=== PATIENT | female | born 1930 | race Caucasian/White ===

== ENCOUNTER 2016-04-16 08:40 | Emergency (ER) | payer OTHER, MEDICAID ==
[~2016-04-16] VITALS: Ht 154.9 cm; Wt 52.2 kg
[~2016-04-16 08:40] MED LIST: AZOPT10 ML OP; DIOVAN; DIOVAN HCT 3201 EAC1 PO; DOXAZOSIN MESYLA4 MG PO; IBUPROFEN600 MG ORAL; KEFLEX500 MG ORAL; LUMIGAN1 DROP OP; NS 55 ML IV ONE; SILVADENE CREAM50 GM TOP; Tubing IV Cassette IV ONE
[2016-04-16] MEDS ORDERED: Dexamethasone 4mg/ml vial IVP ONE (09:30)
[2016-04-16] MEDS ORDERED: cefTRIAXone 1 GM in NS 55 ML IVPB ONE (09:30)
--- NOTE | 2016-04-16 09:54 | Emergency Room Report ---
History of Present Illness General Chief Complaint: Sore Throat Source: Patient Present Illness HPI Patient presents with sore throat for 2 days. The pain radiates to her left ear. She was a slight change in her voice. She's been able to tolerate oral fluids. She's also constipated. She denies any fevers or chills chest pain. She has not trouble opening her mouth. There is no neck pain. She rates pain 10/10, constant slightly worse with swallowing - sharp, stabbing She states medicine used in hospital helped with her constipation. She denies taking opiates. Last admitted for syncope. Allergies: Coded Allergies: No Known Allergies (Verified , 09/16/08) Patient History Past Medical History: see triage record Social History: Reports: smoking - prior Social History Narrative at home Last Menstrual Period: na Reviewed Nursing Documentation: PMH: Agreed, PSxH: Agreed Nursing Documentation-PMH Past Medical History: No History, Except For Hx Cardiac Problems: No Hx Hypertension: Yes Hx Diabetes: No Hx Cancer: No Hx Gastrointestinal Problems: Yes Hx Cerebrovascular Accident: No Hx Vertigo: Yes Hx Dizziness: Yes Hx Syncope: Yes Hx Headaches: Yes Hx Numbness: Yes Review of Systems All Other Systems: negative except mentioned in HPI Physical Exam Vital Signs Date Time Temp Pulse Resp B/P Pulse Ox O2 Delivery O2 Flow Rate FiO2 04/16/16 09:02 98.4 102 18 171/83 95 Room Air Sp02 EP Interpretation: reviewed, abnormal - slightly low as interpreted by me General Appearance: well appearing, no apparent distress, alert, GCS 15, non- toxic, thin Head: normocephalic, atraumatic Eyes: bilateral eye PERRL, bilateral eye normal inspection ENT: TMs + canals normal, moist mucus membranes, tonsillar swelling - L, pharyngeal erythema, other - no exudates, TMs with cerumen Neck: full range of motion, supple, no meningismus Respiratory: lungs clear, normal breath sounds, no respiratory distress, speaking full sentences Cardiovascular #1: regular rate, rhythm Gastrointestinal: normal bowel sounds, soft, scaphoid Musculoskeletal: digits/nails normal, gait/station normal, normal range of motion Neurologic: alert, oriented x3, normal gait, grossly normal Psychiatric: mood/affect normal Skin: no rash Medical Decision Making Diagnostic Impression: Primary Impression: Peritonsillar abscess Additional Impression: Constipation Qualified Codes: K59.00 - Constipation, unspecified ER Course Patient with sore throat. DDx: viral, strep, [employer]. Exam c/w early [employer]. Needs antibiotics and also decadron. Peritonsillar abscess is small and not affecting ability to open mouth or swallow. Will treat aggressively and follow patient closely. Patient told this might need to be drained. She understands. Tolerating PO well. (She also requests medication to help with constipation.) Patient stable for outpatient observation and treatment. Last Vital Signs Date Time Temp Pulse Resp B/P Pulse Ox O2 Delivery O2 Flow Rate FiO2 04/16/16 10:58 98.4 97 18 165/81 96 Room Air Status: improved Disposition: HOME, SELF-CARE Condition: Improved Scripts Sennosides (Senokot) 8.6 Mg Tablet 8.6 MG PO DAILY Y for Constipation, #4 TAB Prov: Aric Hunter M.D. 04/16/16 Acetaminophen (Tylenol) 325 Mg Tablet 650 MG ORAL Q6H Y for Prn Pain/Headache/Temp > 101, #30 TAB 0 Refills Prov: Aric Hunter M.D. 04/16/16 Amoxicillin/Potassium Clav 500-125 Tablet* (AUGMENTIN 500-125 TABLET*) 1 Each Tablet 1 TAB ORAL THREE TIMES A DAY, #21 TAB Prov: Aric Hunter M.D. 04/16/16 Referrals: [facility],REFERRING (PCP) Aric Hunter M.D. Apr 16, 2016 09:54
[2016-04-16 10:30] VITALS: BP 165/81
[2016-04-16] MEDS ORDERED: SENOKOT8.6 MG PO (10:45)
[2016-04-16] MEDS ORDERED: AUGMENTIN 500-1 EACH ORAL (10:45)
[2016-04-16] MEDS ORDERED: TYLENOL325 MG ORAL (10:45)
[2016-04-16 10:58] VITALS: BP 165/81
== END 2016-04-16 10:58 | disposition home or self-care (01) ==
LOC: EMR 09:21
DX: J36 Peritonsillar abscess (principal); H61.23 Impacted cerumen, bilateral; I10 Essential (primary) hypertension
CPT/HCPCS: 96360; 96374; 99284; J0696; J1100

== ENCOUNTER 2016-08-23 10:25 | Emergency (ER) | payer OTHER, MEDICAID ==
[~2016-08-23] VITALS: Ht 157.5 cm; Wt 52.6 kg
[~2016-08-23 10:25] MED LIST changes: +AUGMENTIN 500-1 EACH ORAL; -NS 55 ML IV ONE; +SENOKOT8.6 MG PO; +TYLENOL325 MG ORAL; -Tubing IV Cassette IV ONE
[2016-08-23] MEDS ORDERED: LATANOPROST2.5 ML BOTH EYES (10:33)
[2016-08-23 11:08] VITALS: BP 157/82
[2016-08-23 11:31] LABS: BASOPHILS % (AUTO) 1.6 % (0.0-2.0); EOSINOPHILS % (AUTO) 3.3 % (0.0-3.0); LYMPHOCYTES % (AUTO) 22.4 % (20.0-45.0); MEAN CORPUSCULAR HEMOGLOBIN 30.8 PG (27.0-31.0); MEAN CORPUSCULAR HGB CONC 32.7 G/DL (32.0-36.0); MEAN CORPUSCULAR VOLUME 94 FL (80-99); MEAN PLATELET VOLUME 7.2 FL (6.5-10.1); NEUTROPHILS % (AUTO) 64.6 % (45.0-75.0); PLATELET COUNT 204 K/UL (150-450); RED BLOOD COUNT 4.18 M/UL (4.20-5.40); WHITE BLOOD COUNT 4.9 K/UL (4.8-10.8)
[2016-08-23 11:44] LABS: ALANINE AMINOTRANSFERASE 21 U/L (3-33); ALBUMIN/GLOBULIN RATIO 1.7 (1.0-2.7); ANION GAP 10 (5-15); ASPARTATE AMINO TRANSFERASE 25 U/L (5-40); CALCIUM 9.4 mg/dL (8.6-10.2); CARBON DIOXIDE 28 mEQ/L (20-30); CHLORIDE 101 mEQ/L (98-107); HEMOLYSIS 5; POTASSIUM 3.8 mEQ/L (3.4-4.9); SODIUM 139 mEQ/L (135-145); TOTAL PROTEIN 6.4 g/dL (6.6-8.7); TROPONIN I < 0.30 ng/mL (<=0.30)
[2016-08-23 11:54] LABS: CKMB 2.2 ng/mL (< 3.8)
--- NOTE | 2016-08-23 13:25 | Emergency Room Report ---
History of Present Illness General Chief Complaint: Upper Respiratory Illness Source: Patient Present Illness HPI [id number] BIBEMS from SNF with SOB since last night. Worse with lying flat. Has been occurring over last month. Doesnt know her medical history, not sure if she has CHF Previous heavy smoking 40 years ago Denies cough, fever/chills, chest pain, abd pain, urinary complaints Allergies: Coded Allergies: No Known Allergies (Verified , 09/16/08) Patient History Past Medical History: none, old chart reviewed Past Surgical History: none Pertinent Family History: none Social History: Denies: alcohol use, drug use, smoking Now: No Immunizations: UTD Reviewed Nursing Documentation: PMH: Agreed, PSxH: Agreed Nursing Documentation-PMH Hx Cardiac Problems: No Hx Hypertension: Yes Hx Diabetes: No Hx Cancer: No Hx Gastrointestinal Problems: Yes Hx Cerebrovascular Accident: No Hx Vertigo: Yes Hx Dizziness: Yes Hx Syncope: Yes Hx Headaches: Yes Hx Numbness: Yes Review of Systems All Other Systems: negative except mentioned in HPI Physical Exam Vital Signs Date Time Temp Pulse Resp B/P Pulse Ox O2 Delivery O2 Flow Rate FiO2 08/23/16 10:28 97.5 98 20 154/83 95 Room Air Sp02 EP Interpretation: reviewed, normal General Appearance: normal inspection, well appearing, no apparent distress, alert, GCS 15, non-toxic Head: normocephalic, atraumatic Eyes: bilateral eye EOMI, bilateral eye PERRL ENT: normal ENT inspection, hearing grossly normal, normal voice Neck: normal inspection, full range of motion, supple, no bony tend Respiratory: normal inspection, lungs clear, normal breath sounds, no respiratory distress, no retraction, no wheezing, crackles Cardiovascular #1: regular rate, rhythm, no edema Gastrointestinal: normal inspection, normal bowel sounds, non tender, soft, no guarding, no hernia Genitourinary: no CVA tenderness Musculoskeletal: normal inspection, back normal, normal range of motion, Dallas' s Sign negative Neurologic: normal inspection, alert, oriented x3, responsive, cloth printer helper III-XII nml as tested, motor strength/tone normal, speech normal Psychiatric: normal inspection, judgement/insight normal, mood/affect normal Skin: normal inspection, normal color, no rash Lymphatic: normal inspection Medical Decision Making Medicare Attestation I Jen Anna MD hereby attest that the medical record entry for date of service, 01/10/16 accurately reflects signatures/notations that I made in my capacity as MD when I treated/diagnosed the above listed Medicare beneficiary. I attest that this information is true, accurate and complete to the best of my knowledge. I understand that any falsification, omission, or concealment of material fact may subject me to administrative, civil, or criminal liability. This patient warrants hospital admission for extreme of age and has a condition that cannot be treated as outpatient. Diagnostic Impression: Primary Impression: SOB (shortness of breath) Additional Impressions: DERIK (acute kidney injury) CHF (congestive heart failure) Qualified Codes: I50.9 - Heart failure, unspecified ER Course SOB - Afebrile. VSS. - ECG is NSR, no ischemia - CXR with mild pulm edema - Elevated BNP - Trop 0. - Mild DERIK on Labs - Small dose Lasix given Endorsed for tele admit Dr MOLINA Diagnostic Results Rate: normal Rhythm: NSR ST Segments: no acute changes ASA given to the pt in ED: No Rhythm Strip Diag. Results EP Interpretation: yes Rate: 96 Rhythm: NSR, no PVC's, no ectopy Chest X-Ray Diagnostic Results Chest X-Ray Diagnostic Results : Chest X-Ray Ordered: Yes # of Views/Limited/Complete: 1 View Indication: Shortness of Breath EP Interpretation: Yes Interpretation: no consolidation, no pneumothorax, no acute cardiopulmonary disease, other - mild pulm edema Interpreting ER Provider: Electronically signed by Dr Anna Last Vital Signs Date Time Temp Pulse Resp B/P Pulse Ox O2 Delivery O2 Flow Rate FiO2 08/23/16 11:11 91 14 Room Air 08/23/16 11:08 98.1 157/82 98 Status: improved Disposition: ADMITTED INPATIENT Condition: Serious Referrals: [facility],REFERRING (PCP) JEN ANNA M.D. Aug 23, 2016 13:25
[2016-08-23 13:30] VITALS: BP 159/93
[2016-08-23 14:20] VITALS: BP 155/93
--- NOTE | 2016-08-23 14:59 | Diagnostic Imaging Report ---
Indication: SOB Technique: One view of the chest Comparison: 11/24/2011 Findings: The lungs and pleural spaces are clear. The heart is borderline enlarged. This is a new finding. There is no significant change Impression: No acute process Borderline cardiomegaly
[2016-08-23 15:45] VITALS: BP 158/91
--- NOTE | 2016-08-24 12:32 | Cardiology Report ---
APPROVED REPORT EKG Measurement Heart [id number] [place] [id number] Normal sinus rhythm Possible Left atrial enlargement Right bundle branch block Abnormal ECG
== END 2016-08-23 15:45 | disposition left against medical advice (07) ==
LOC: EMR 11:50
DX: R06.02 Shortness of breath (principal); N17.9 Acute kidney failure, unspecified; I50.9 Heart failure, unspecified
CPT/HCPCS: 36415; 71010; 80053; 82550; 82553; 83880; 84484; 85025; 93005; 96374; 99284; J1940

== ENCOUNTER 2016-11-30 10:21 | Emergency (ER) | payer MEDICARE, MEDICAID ==
[~2016-11-30] VITALS: Ht 162.6 cm; Wt 68.0 kg
[~2016-11-30 10:21] MED LIST changes: +LATANOPROST2.5 ML BOTH EYES
[2016-11-30 10:54] LABS: ABG ALLEN TEST POSITIVE; ABG BASE EXCESS 1.9; ABG PCO2 40.2 mmHg (35.0-45.0)
[2016-11-30 10:56] VITALS: BP 138/90
--- NOTE | 2016-11-30 11:12 | Emergency Room Report ---
History of Present Illness General Chief Complaint: Dyspnea/Respdistress Source: Patient, Medical Record Present Illness HPI Patient presents with complaints of shortness of breath Patient describes exertional dyspnea She reports that she gets short of breath on a usual basis however last night felt worse and usual With short exertion she feels worsening symptom Denies any chest pain at this time denies any vomiting denies any fevers or chills denies any cough Allergies: Coded Allergies: No Known Allergies (Verified , 09/16/08) Patient History Past Medical History: see triage record Pertinent Family History: none Reviewed Nursing Documentation: PMH: Agreed, PSxH: Agreed Nursing Documentation-PMH Past Medical History: No History, Except For Hx Cardiac Problems: No Hx Hypertension: Yes Hx Diabetes: No Hx Cancer: No Hx Gastrointestinal Problems: Yes Hx Cerebrovascular Accident: No Hx Vertigo: Yes Hx Dizziness: Yes Hx Syncope: Yes Hx Headaches: Yes Hx Numbness: Yes Review of Systems All Other Systems: negative except mentioned in HPI Physical Exam Vital Signs Date Time Temp Pulse Resp B/P (MAP) Pulse Ox O2 Delivery O2 Flow Rate FiO2 11/30/16 10:25 97.3 103 18 160/95 94 Room Air Sp02 EP Interpretation: reviewed, normal General Appearance: well appearing, no apparent distress Head: normocephalic, atraumatic Eyes: bilateral eye PERRL, bilateral eye EOMI ENT: hearing grossly normal, normal pharynx, TMs + canals normal, uvula midline Neck: full range of motion, supple, no meningismus, no bony tend Respiratory: lungs clear, normal breath sounds, no rhonchi, no respiratory distress, no retraction, no accessory muscle use Cardiovascular #1: normal peripheral pulses, regular rate, rhythm, no edema, no gallop, no JVD, no murmur Gastrointestinal: normal bowel sounds, non tender, soft, no mass, no organomegaly, non-distended, no guarding, no hernia, no pulsatile mass, no rebound Genitourinary: no CVA tenderness Musculoskeletal: normal inspection Neurologic: oriented x3, responsive, art psychotherapist III-XII nml as tested, motor strength/ tone normal, sensory intact Psychiatric: mood/affect normal Skin: normal color, no rash, warm/dry, palpation normal Lymphatic: normal inspection, no adenopathy Medical Decision Making Diagnostic Impression: Primary Impression: CHF (congestive heart failure) ER Course Patient is a fairly complex patient with multiple differential to consideration including but not limited to cardiac cardiopulmonary and vascular emergencies Patient's x-ray shows some congestion pulmonary Blood work also reveals elevated BNP troponin is intermediate and indeterminate patient otherwise remains chest pain-free And secondary to insurance purposes requires transfer Labs Test 11/30/16 10:46 11/30/16 10:58 Arterial Blood pH 7.430 (7.350-7.450) Arterial Blood Partial Pressure CO2 40.2 mmHg (35.0-45.0) Arterial Blood Partial Pressure O2 71.7 mmHg (75.0-100.0) Arterial Blood HCO3 26.3 mmol/L (22.0-26.0) Arterial Blood Oxygen Saturation 94.2 % (92.0-98.0) Arterial Blood Base Excess 1.9 James Test Positive White Blood Count 5.6 K/UL (4.8-10.8) Red Blood Count 3.99 M/UL (4.20-5.40) Hemoglobin 12.6 G/DL (12.0-16.0) Hematocrit 37.9 % (37.0-47.0) Mean Corpuscular Volume 95 FL (80-99) Mean Corpuscular Hemoglobin 31.5 PG (27.0-31.0) Mean Corpuscular Hemoglobin Concent 33.2 G/DL (32.0-36.0) Red Cell Distribution Width 12.7 % (11.6-14.8) Platelet Count 195 K/UL (150-450) Mean Platelet Volume 7.0 FL (6.5-10.1) Neutrophils (%) (Auto) 68.3 % (45.0-75.0) Lymphocytes (%) (Auto) 19.1 % (20.0-45.0) Monocytes (%) (Auto) 6.9 % (1.0-10.0) Eosinophils (%) (Auto) 3.8 % (0.0-3.0) Basophils (%) (Auto) 1.9 % (0.0-2.0) Sodium Level 144 MMOL/L (136-145) Potassium Level 4.4 MMOL/L (3.5-5.1) Chloride Level 108 MMOL/L (98-107) Carbon Dioxide Level 27 MMOL/L (21-32) Anion Gap 9 mmol/L (5-15) Blood Urea Nitrogen 23 mg/dL (7-18) Creatinine 0.9 MG/DL (0.55-1.30) Estimat Glomerular Filtration Rate mL/min (>60) Glucose Level 92 MG/DL (74-106) Calcium Level 9.1 MG/DL (8.5-10.1) Total Bilirubin 0.6 MG/DL (0.2-1.0) Aspartate Amino Transf (AST/SGOT) 46 U/L (15-37) Alanine Aminotransferase (ALT/SGPT) 43 U/L (12-78) Alkaline Phosphatase 45 U/L (46-116) Total Creatine Kinase 94 U/L (26-308) Creatine Kinase MB 1.3 NG/ML (0.0-3.6) Creatine Kinase MB Relative Index 1.3 Troponin I 0.050 ng/mL (0.000-0.056) Pro-B-Type Natriuretic Peptide 3014 pg/mL (0-125) Total Protein 6.6 G/DL (6.4-8.2) Albumin 3.5 G/DL (3.4-5.0) Globulin 3.1 g/dL Albumin/Globulin Ratio 1.1 (1.0-2.7) Rhythm Strip Diag. Results EP Interpretation: yes Rate: 67 Rhythm: NSR, no PVC's, no ectopy Chest X-Ray Diagnostic Results Chest X-Ray Diagnostic Results : Chest X-Ray Ordered: Yes # of Views/Limited/Complete: 1 View Indication: Chest Pain EP Interpretation: Yes Interpretation: no consolidation, no effusion, no pneumothorax, other - Cardiomegaly with pulmonary congestion Impression: Other - CHF Electronically Signed by: Rhiannon Fairchild DO Last Vital Signs Date Time Temp Pulse Resp B/P (MAP) Pulse Ox O2 Delivery O2 Flow Rate FiO2 11/30/16 10:56 97.3 92 17 138/90 93 Room Air Status: improved Disposition: XFER SHT-TRM HOSP Condition: Improved RHIANNON FAIRCHILD D.O. Nov 30, 2016 11:12
[2016-11-30 11:26] LABS: BASOPHILS % (AUTO) 1.9 % (0.0-2.0); EOSINOPHILS % (AUTO) 3.8 % (0.0-3.0); LYMPHOCYTES % (AUTO) 19.1 % (20.0-45.0); MEAN CORPUSCULAR HEMOGLOBIN 31.5 PG (27.0-31.0); MEAN CORPUSCULAR HGB CONC 33.2 G/DL (32.0-36.0); MEAN CORPUSCULAR VOLUME 95 FL (80-99); MONOCYTES % (AUTO) 6.9 % (1.0-10.0); NEUTROPHILS % (AUTO) 68.3 % (45.0-75.0); PLATELET COUNT 195 K/UL (150-450); RED BLOOD COUNT 3.99 M/UL (4.20-5.40); RED CELL DISTRIBUTION WIDTH 12.7 % (11.6-14.8); WHITE BLOOD COUNT 5.6 K/UL (4.8-10.8)
--- NOTE | 2016-11-30 11:46 | Diagnostic Imaging Report ---
Indication: SOB Technique: One view of the chest Comparison: 08/23/2016 Findings: The heart is enlarged. Borderline generalized interstitial prominence appears similar to the prior study, may be of the basis of senescent changes although acute congestion not completely excludable. Impression: Cardiomegaly Doubt acute process. Mild interstitial congestion not completely excludable
[2016-11-30 11:54] LABS: ALANINE AMINOTRANSFERASE 43 U/L (12-78); ALBUMIN/GLOBULIN RATIO 1.1 (1.0-2.7); ANION GAP 9 mmol/L (5-15); ASPARTATE AMINO TRANSFERASE 46 U/L (15-37); CALCIUM 9.1 MG/DL (8.5-10.1); CARBON DIOXIDE 27 MMOL/L (21-32); CHLORIDE 108 MMOL/L (98-107); CKMB 1.3 NG/ML (0.0-3.6); CREATININE 0.9 MG/DL (0.55-1.30); POTASSIUM 4.4 MMOL/L (3.5-5.1); SODIUM 144 MMOL/L (136-145); TOTAL PROTEIN 6.6 G/DL (6.4-8.2)
[2016-11-30 12:58] VITALS: BP 147/97
[2016-11-30 13:16] VITALS: BP 147/97
--- NOTE | 2016-12-03 18:48 | Cardiology Report ---
APPROVED REPORT EKG Measurement Heart [id number] ND [id number] [id number] Normal sinus rhythm Possible Left atrial enlargement Right bundle branch block Abnormal ECG
== END 2016-11-30 13:16 | disposition short-term general hospital (02) ==
LOC: EMR 11:25
DX: I50.9 Heart failure, unspecified (principal); R09.89 Other specified symptoms and signs involving the circulatory and respiratory systems; R06.00 Dyspnea, unspecified; Z87.19 Personal history of other diseases of the digestive system; R42 Dizziness and giddiness; R51 Headache; R20.0 Anesthesia of skin; I51.7 Cardiomegaly
CPT/HCPCS: 36415; 36600; 71010; 80053; 82550; 82553; 82803; 83880; 84484; 85025; 87040; 93005; 96374; 99285; J1940

== ENCOUNTER 2016-12-17 11:23 | Emergency (ER) | payer MEDICAID, MEDICARE ==
[~2016-12-17] VITALS: Ht 157.5 cm; Wt 49.9 kg
--- NOTE | 2016-12-17 12:31 | Emergency Room Report ---
History of Present Illness General Chief Complaint: Medication Refill Source: Medical Record (Renetta Graves) Present Illness HPI 86-year-old female presents to the emergency department requesting medication refills. Patient states that she was recently admitted, transferred to [facility] then discharged several days later and was told she needs to fill some prescriptions. Patient states she is in today because she needs prescriptions for the medications she is supposed to be taking. She also states that she had accidentally missed her followup appointment that was made for her asthma when told her exactly what day it was. Patient states that she walked here she denies shortness of breath she states that her ankles on occasional swell up at the end of the day patient denies coughing, sputum production, difficulty breathing when laying down. Patient states that her primary care doctor is Dr. Hernandez. Denies CP, Palpitations, LOC, AMS, dizziness, Changes in Vision, Sensation, paresthesias, or a sudden severe headache. (Renetta Graves) Allergies: Coded Allergies: No Known Allergies (Verified , 09/16/08) Patient History Past Medical History: see triage record, HTN, CAD, CHF Past Surgical History: none Pertinent Family History: none Now: No Reviewed Nursing Documentation: PMH: Agreed, PSxH: Agreed (Renetta Graves) Nursing Documentation-PMH Hx Cardiac Problems: Yes - Cardiomyapathy Hx Hypertension: Yes Hx Diabetes: No Hx Cancer: No Hx Gastrointestinal Problems: Yes Hx Cerebrovascular Accident: No Hx Vertigo: Yes Hx Dizziness: Yes Hx Syncope: Yes Hx Headaches: Yes Hx Numbness: Yes (Renetta Graves) Review of Systems All Other Systems: negative except mentioned in HPI (Renetta Graves) Physical Exam Vital Signs Date Time Temp Pulse Resp B/P (MAP) Pulse Ox O2 Delivery O2 Flow Rate FiO2 12/17/16 11:28 97.5 104 18 161/92 98 Room Air Sp02 EP Interpretation: reviewed, normal General Appearance: well appearing, no apparent distress, alert, GCS 15, non- toxic Head: normocephalic Respiratory: chest non-tender, lungs clear, normal breath sounds, no rhonchi, no respiratory distress Cardiovascular #1: regular rate, rhythm, no edema, normal capillary refill Musculoskeletal: back normal, gait/station normal, normal range of motion Neurologic: alert, oriented x3, responsive, normal gait Skin: normal color, warm/dry, well hydrated (Renetta Graves) Medical Decision Making [place] Attestation Dr. Wick is my supervising Physician whom patient management has been discussed with. (Renetta Graves) Medicare Attestation Leo, Randy Wick MD hereby attest that the medical record entry accurately reflects signatures/notations that I made in my capacity as MD when I treated/ diagnosed the above listed Medicare beneficiary. I attest that this information is true, accurate and complete to the best of my knowledge. I understand that any falsification, omission, or concealment of material fact may subject me to administrative, civil, or criminal liability. This patient warrants hospital admission for extreme of age and has a condition that cannot be treated as outpatient. (Randy Wick M.D.) Diagnostic Impression: Primary Impression: Encounter for medication refill Additional Impression: Encounter for medical screening examination ER Course Pt. presents to the ED c/o running out of her medication and her soonest appt. with her pcp is june 03. pt takes [ ] -Patient has her discharge packet with her, upon review of the papers her prescription was inside the discharge packet it included prescriptions for carvedilol, hydrochlorothiazide, and a post ophthalmologic solution. Also was discharge instructions for patient to discontinue use of Diovan. I discussed this with the patient she stated that she was unaware that she was supposed to discharge this medication. Ddx considered but are not limited to: CHF, non-compliance with f/u instructions , medication refill just to name a few. Vital signs: are WNL, pt. is afebrile H&PE are most consistent with need for medical screening exam, and review of previous discharge instructions with medication management. Pt. is handed the prescriptions that were previously written for her, that she was unaware of having. ORDERS: none required at this time, the diagnosis is clinical ED INTERVENTIONS: --Attempt was made to contact Dr. Hernandez's office to facilitate obtaining a follow up appt. for the pt. As it is Sunday the office is closed. I had wrote Dr. Hernandez's number on the Pt. D/C paperwork in large letters so that it will be visible for her to read, pt. instructed to call that number tomorrow to get an appt. DISCHARGE: At this time pt. is stable for d/c to home. Will provide printed patient care instructions, and any necessary prescriptions. Care plan and follow up instructions have been discussed with the patient prior to discharge. (Renetta Graves) Last Vital Signs Date Time Temp Pulse Resp B/P (MAP) Pulse Ox O2 Delivery O2 Flow Rate FiO2 12/17/16 11:28 97.5 104 18 161/92 98 Room Air (Renetta Graves) Disposition: HOME, SELF-CARE Condition: Stable Patient Instructions: Medicine Refill at the Emergency Department Additional Instructions: FILL YOUR PRESCRIPTION for MEDICATIONS -- Take medications as directed. -REVIEW DISCHARGE PAPERWORK FROM RECENT HOSPITALIZATION FOR WHICH MEDICATION TO CONTINUE TAKING, and WHICH MEDCIATION YOU ARE TO STOP TAKING. -MAKE A FOLLOW UP APPOINTMENT WITH Dr. HERNANDEZ: Follow up with a Primary Care Provider in 3-5 days, even if your symptoms have resolved. Please note that this Emergency Department Report was dictated using [employer] seamer technology software, occasionally this can lead to erroneous entry secondary to interpretation by the dictation equipment. Renetta Graves Dec 17, 2016 12:31 Randy Wick M.D. Dec 19, 2016 22:00
[2016-12-17] MEDS ORDERED: DIOVAN160 MG ORAL (12:34)
[2016-12-17] MEDS ORDERED: CARVEDILOL6.25 MG ORAL (12:34)
[2016-12-17] MEDS ORDERED: XALATAN2.5 ML BOTH EYES (12:34)
[2016-12-17] MEDS ORDERED: HYDROCHLOROTHIA25 MG ORAL (12:34)
[2016-12-17 13:30] VITALS: BP 163/88
[2016-12-17 13:31] VITALS: BP 163/88
== END 2016-12-17 13:20 | disposition home or self-care (01) ==
LOC: EMR 11:50
DX: Z76.0 Encounter for issue of repeat prescription (principal); I10 Essential (primary) hypertension; I42.9 Cardiomyopathy, unspecified
CPT/HCPCS: 99282

== ENCOUNTER 2017-03-31 10:32 | Inpatient (IN) | payer OTHER, MEDICAID ==
[2017-03-31] VITALS (7 sets, daily range): BP systolic 108–154; BP diastolic 80–91
[~2017-03-31] VITALS: Ht 157.5 cm; Wt 52.8 kg
[~2017-03-31 10:32] MED LIST changes: +CARVEDILOL6.25 MG ORAL; +DIOVAN160 MG ORAL; +HYDROCHLOROTHIA25 MG ORAL; +XALATAN2.5 ML BOTH EYES
--- NOTE | 2017-03-31 10:51 | Emergency Room Report ---
History of Present Illness General Chief Complaint: Medication Refill Source: Patient Present Illness HPI Patient presents requesting a refill of Lasix. She says that she's short of breath and wheezing. This happens when she is off of Lasix. Has history of congestive heart failure. She denies any chest pain, fever, productive cough. Only requesting refill. Denies significant edema. H/O CHF Denies DM, HTN, smoking, fam hx No NVD, joint pain, rashes, headache, dysuria. Macular degeneration and glaucoma. Allergies: Coded Allergies: No Known Allergies (Verified , 09/16/08) Patient History Past Medical History: see triage record Social History: Denies: smoking Social History Narrative lives by self Reviewed Nursing Documentation: PMH: Agreed, PSxH: Agreed Nursing Documentation-PMH Hx Cardiac Problems: Yes - Cardiomyapathy Hx Hypertension: Yes Hx Diabetes: No Hx Cancer: No Hx Gastrointestinal Problems: Yes Hx Cerebrovascular Accident: No Hx Vertigo: Yes Hx Dizziness: Yes Hx Syncope: Yes Hx Headaches: Yes Hx Numbness: Yes Review of Systems All Other Systems: negative except mentioned in HPI Physical Exam Vital Signs Date Time Temp Pulse Resp B/P (MAP) Pulse Ox O2 Delivery O2 Flow Rate FiO2 03/31/17 10:36 97.3 115 20 154/87 93 97.3 Sp02 EP Interpretation: reviewed, abnormal - interpreted as low by me General Appearance: well appearing, no apparent distress, GCS 15 Head: normocephalic Eyes: bilateral eye normal inspection, bilateral eye other - sylastic lenses ENT: moist mucus membranes Neck: supple Respiratory: rales - faint bilat Cardiovascular #1: regular rate, rhythm, no JVD - sitting 90 degrees, edema - trace Cardiovascular #2: 2+ radial (R) Gastrointestinal: normal inspection, normal bowel sounds, non tender, no mass, non-distended Musculoskeletal: back normal, gait/station normal, normal range of motion, no calf tenderness Neurologic: alert, oriented x3, grossly normal Psychiatric: mood/affect normal Skin: normal inspection, warm/dry Medical Decision Making Diagnostic Impression: Primary Impression: NSTEMI (non-ST elevated myocardial infarction) Additional Impression: CHF (congestive heart failure) Qualified Codes: I50.43 - Acute on chronic combined systolic (congestive) and diastolic (congestive) heart failure ER Course Patient requests refill Lasix. Has symptoms. DDx: AMI, ACS, CHF, electrolyte abnormalities amongst others. Evaluation with EKG, CXR, labs. Treatment depending on results. Prior to labs patient requests to go home. EKG with ST and RBBB, no injury. CXR with CHF. Labs with + troponin, elevated BNP, min low potassium. Aspirin given, nitrates also. Lasix given. Diuresing. Discussed with Dr. Morales - agrees with admission here. Admit GERARDO, Dr. Smith. Laboratory Tests Test 03/31/17 11:04 White Blood Count 5.5 K/UL (4.8-10.8) Red Blood Count 4.29 M/UL (4.20-5.40) Hemoglobin 13.3 G/DL (12.0-16.0) Hematocrit 40.0 % (37.0-47.0) Mean Corpuscular Volume 93 FL (80-99) Mean Corpuscular Hemoglobin 31.0 PG (27.0-31.0) Mean Corpuscular Hemoglobin Concent 33.3 G/DL (32.0-36.0) Red Cell Distribution Width 12.2 % (11.6-14.8) Platelet Count 216 K/UL (150-450) Mean Platelet Volume 7.2 FL (6.5-10.1) Neutrophils (%) (Auto) 75.2 % (45.0-75.0) H Lymphocytes (%) (Auto) 15.3 % (20.0-45.0) L Monocytes (%) (Auto) 5.6 % (1.0-10.0) Eosinophils (%) (Auto) 3.1 % (0.0-3.0) H Basophils (%) (Auto) 0.9 % (0.0-2.0) Prothrombin Time 10.3 SEC (9.30-11.50) Prothrombin Time INR 1.0 (0.9-1.1) PTT 26 SEC (23-33) Sodium Level 141 MMOL/L (136-145) Potassium Level 3.3 MMOL/L (3.5-5.1) L Chloride Level 102 MMOL/L (98-107) Carbon Dioxide Level 30 MMOL/L (21-32) Anion Gap 9 mmol/L (5-15) Blood Urea Nitrogen 16 mg/dL (7-18) Creatinine 1.2 MG/DL (0.55-1.30) Estimate Glomerular Filtration Rate mL/min (>60) Glucose Level 101 MG/DL (74-106) Calcium Level 9.0 MG/DL (8.5-10.1) Total Bilirubin 0.7 MG/DL (0.2-1.0) Aspartate Amino Transferase (AST) 30 U/L (15-37) Alanine Aminotransferase (ALT) 54 U/L (12-78) Alkaline Phosphatase 60 U/L (46-116) Total Creatine Kinase 105 U/L (26-308) Troponin I 0.076 ng/mL (0.000-0.056) Pro-B-Type Natriuretic Peptide 4859 pg/mL (0-125) H Total Protein 7.3 G/DL (6.4-8.2) Albumin 3.6 G/DL (3.4-5.0) Globulin 3.7 g/dL Albumin/Globulin Ratio 1.0 (1.0-2.7) EKG Diagnostic Results Rate: tachycardiac ST Segments: no acute changes - RBBB Rhythm Strip Diag. Results EP Interpretation: yes Rhythm: no PVC's, no ectopy, other - ST Chest X-Ray Diagnostic Results Chest X-Ray Diagnostic Results : Chest X-Ray Ordered: Yes # of Views/Limited/Complete: 1 View Indication: Shortness of Breath Interpretation: no effusion, no pneumothorax, other - CHF Electronically Signed by: Aric Hunter MD Last Vital Signs Date Time Temp Pulse Resp B/P (MAP) Pulse Ox O2 Delivery O2 Flow Rate FiO2 03/31/17 21:39 102 150/80 03/31/17 20:00 98.0 20 94 Room Air 98.0 Status: improved Disposition: ADMITTED INPATIENT Condition: Serious Aric Hunter M.D. Mar 31, 2017 10:51
[2017-03-31 11:17] LABS: BASOPHILS % (AUTO) 0.9 % (0.0-2.0); EOSINOPHILS % (AUTO) 3.1 % (0.0-3.0); HEMOGLOBIN 13.3 G/DL (12.0-16.0); LYMPHOCYTES % (AUTO) 15.3 % (20.0-45.0); MEAN CORPUSCULAR VOLUME 93 FL (80-99); MONOCYTES % (AUTO) 5.6 % (1.0-10.0); NEUTROPHILS % (AUTO) 75.2 % (45.0-75.0); PLATELET COUNT 216 K/UL (150-450); RED BLOOD COUNT 4.29 M/UL (4.20-5.40); RED CELL DISTRIBUTION WIDTH 12.2 % (11.6-14.8); WHITE BLOOD COUNT 5.5 K/UL (4.8-10.8)
[2017-03-31 11:29] LABS: ANION GAP 9 mmol/L (5-15); BLOOD UREA NITROGEN 16 mg/dL (7-18); CARBON DIOXIDE 30 MMOL/L (21-32); CHLORIDE 102 MMOL/L (98-107); CREATININE 1.2 MG/DL (0.55-1.30); POTASSIUM 3.3 MMOL/L (3.5-5.1); SODIUM 141 MMOL/L (136-145)
[2017-03-31 11:38] LABS: ALANINE AMINOTRANSFERASE 54 U/L (12-78); ALBUMIN 3.6 G/DL (3.4-5.0); ALKALINE PHOSPHATASE 60 U/L (46-116); ASPARTATE AMINO TRANSFERASE 30 U/L (15-37); BILIRUBIN,TOTAL 0.7 MG/DL (0.2-1.0); CREATINE KINASE 105 U/L (26-308)
[2017-03-31] MEDS ORDERED: Metoprolol 5mg/5ml Inj IVP STA (11:40)
[2017-03-31] MEDS ORDERED: FUROSEMIDE20 M1 ORAL (14:44)
[2017-03-31] MEDS: Carvedilol 6.25mg Tab ORAL SCH (21:39)
[2017-03-31] MEDS: Latanoprost 0.005% Opth 2.5ml Soln BOTH EYES SCH (21:39)
[2017-03-31] MEDS: Heparin 5000 units/ml inj SUBQ SCH (21:40)
[2017-04-01] VITALS: BP 118/68
[2017-04-01 04:00] VITALS: BP 141/89
[2017-04-01 05:26] LABS: ALANINE AMINOTRANSFERASE 39 U/L (12-78); ALBUMIN 2.9 G/DL (3.4-5.0); ALBUMIN/GLOBULIN RATIO 1.1 (1.0-2.7); ALKALINE PHOSPHATASE 46 U/L (46-116); ANION GAP 3 mmol/L (5-15); ASPARTATE AMINO TRANSFERASE 22 U/L (15-37); BILIRUBIN,TOTAL 0.5 MG/DL (0.2-1.0); BLOOD UREA NITROGEN 30 mg/dL (7-18); CALCIUM 8.6 MG/DL (8.5-10.1); CARBON DIOXIDE 32 MMOL/L (21-32); CHLORIDE 105 MMOL/L (98-107); CHOLESTEROL 196 MG/DL (< 200); CREATININE 1.2 MG/DL (0.55-1.30); HDL CHOLESTEROL 67 MG/DL (40-60); POTASSIUM 3.6 MMOL/L (3.5-5.1); SODIUM 140 MMOL/L (136-145); TRIGLYCERIDES 22 MG/DL (30-150)
[2017-04-01 08:00] VITALS: BP 127/63
[2017-04-01] MEDS ORDERED: Sennosides 8.6mg ORAL PRN ×2 (08:00→22:00)
[2017-04-01] MEDS: Carvedilol 6.25mg Tab ORAL SCH ×2 (08:48→21:01)
[2017-04-01] MEDS: Heparin 5000 units/ml inj SUBQ SCH ×2 (08:51→21:00)
[2017-04-01] MEDS ORDERED: Aspirin Baby 81mg ORAL SCH (09:00)
--- NOTE | 2017-04-01 09:59 | Diagnostic Imaging Report ---
Indication: Reason For Exam: DYSPNEA Technique: XRAY Chest 1v Comparison:05/31/2016 Findings: The heart remains enlarged. Aorta is calcified. There is chronic interstitial change. Linear density is noted in the left midlung, unchanged from previous study. No pleural fluid. Pulmonary vascularity is mildly prominent. Impression: Cardiomegaly with atherosclerotic change. Interstitial disease, likely chronic. This may resent chronic congestive changes. No other change.
[2017-04-01 10:05] LABS: PHOSPHORUS 3.9 MG/DL (2.5-4.9)
[2017-04-01 12:00] VITALS: BP 142/83
--- NOTE | 2017-04-01 15:03 | Cardiology Report ---
APPROVED REPORT EXAM: Two-dimensional and M-mode echocardiogram with Doppler and color Doppler. INDICATION Chest Pain M-Mode DIMENSIONS IVSd1.3 (0.7-1.1cm)Left Atrium (MM)3.6 (1.6-4.0cm) LVDd6.1 (3.5-5.6cm)Aortic Root3.0 (2.0-3.7cm) PWd1.3 (0.7-1.1cm)Aortic Cusp Exc.1.3 (1.5-2.0cm) LVDs4.8 (2.5-4.0cm) PWs1.6 cm Mild left ventricular enlargement. Global left ventricular hypokinesis. Left ventricular ejection fraction estimated to be 35-40%. No evidence of left ventricular hypertrophy. No evidence of pericardial or pleural effusion. Right cardiac chamber sizes are within normal limits. Mild left atrial enlargement by 2D. Focal aortic valve sclerosis with adequate cusp excursion. Thickened mitral valve leaflets with normal excursion. Mild mitral annulus and aortic root calcification. Pulmonic valve not well visualized. Normal tricuspid valve structure. IVC is normal in size and collapsible with respiration. A color flow and spectral Doppler study was performed and revealed: Mild to moderate aortic regurgitation. Severe mitral regurgitation. Mitral inflow velocities indicates possible pseudo normalization pattern implying significant left ventricular diastolic dysfunction. Mild tricuspid regurgitation (2 jets). Tricuspid systolic velocities suggests peak right ventricular systolic pressure of 40mmHg Consistent with mild pulmonary hypertension.
[2017-04-01] MEDS ORDERED: Milk of Magnesia 30ml Ud ORAL PRN ×2 (15:45→22:00)
--- NOTE | 2017-04-01 15:45 | History and Physical Report ---
DATE OF ADMISSION: 03/31/2017 CHIEF COMPLAINT: Shortness of breath. HISTORY OF PRESENT ILLNESS: The patient is a pleasant 86-year-old female. She is unclear of her past medical history. It appears that she has a history of congestive heart failure, possibly COPD. She knows that she is on water pills and sometimes has "wheezing." She has not been taking any water pills because she is unsure whether or not she was supposed to be taking them. She presented to the emergency room with complaints of shortness of breath. She denies any fever or chills. She has had no cough. Upon evaluation there, she did have borderline elevated troponin. She also had evidence of CHF on chest x-ray. She was given a dose of Lasix and is now admitted for further evaluation and care. PAST MEDICAL HISTORY: As above. PAST SURGICAL HISTORY: None. CURRENT MEDICATIONS: The patient does not recall. ALLERGIES: None. FAMILY HISTORY: None. SOCIAL HISTORY: The patient is a prior heavy smoker, but quit. No alcohol. No drugs. REVIEW OF SYSTEMS: Negative except for shortness of breath. PHYSICAL EXAMINATION: VITAL SIGNS: Temperature 97.9, pulse 83, respirations 18, and blood pressure 151/82. GENERAL: The patient is well developed, no apparent distress. HEART: Regular rate and rhythm. LUNGS: Significant for few scattered rales. ABDOMEN: Soft, nontender, and nondistended. EXTREMITIES: Without clubbing, cyanosis, or edema. LABORATORY AND DIAGNOSTIC DATA: Per report, chest x-ray showed CHF. Coags are normal. White count was 5 and hemoglobin 13. Sodium 141 and potassium 3.3. Troponin 0.076. Natriuretic peptide level was 5000. EKG showed a left bundle-branch block. ASSESSMENT: This is a pleasant female admitted with complaints of shortness of breath secondary to congestive heart failure exacerbation: 1. congestive heart failure exacerbation. 2. Elevated troponin. 3. chronic obstructive pulmonary disease. PLAN: Aspirin, IV Lasix. 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 We will titrate the antihypertensive regimen. David Smith M.D. DR: PRABHU/KRISTI JOB#: [id number] CC:
[2017-04-01 16:00] VITALS: BP 123/70
--- NOTE | 2017-04-01 16:17 | Cardiology Report ---
APPROVED REPORT EKG Measurement Heart [id number] Sinus tachycardia with premature atrial complexes Possible Left atrial enlargement Right bundle branch block Abnormal ECG
[2017-04-01] MEDS ORDERED: NS 275ml ONE (16:19)
[2017-04-01] MEDS ORDERED: Tubing IV Secondary IV ONE (16:19)
[2017-04-01 20:00] VITALS: BP 132/82
[2017-04-01] MEDS ORDERED: Miralax 17gm pkt ORAL SCH (21:00)
[2017-04-01] MEDS: Latanoprost 0.005% Opth 2.5ml Soln BOTH EYES SCH (21:01)
[2017-04-02] VITALS: BP 134/73
[2017-04-02 04:00] VITALS: BP 138/83
[2017-04-02 07:41] VITALS: BP 159/93
[2017-04-02] MEDS ORDERED: ASPIRIN81 MG ORAL (08:39)
[2017-04-02] MEDS ORDERED: Carvedilol 6.25mg Tab ORAL SCH (09:00)
[2017-04-02] MEDS ORDERED: Aspirin Baby 81mg ORAL SCH (09:00)
[2017-04-02] MEDS ORDERED: Heparin 5000 units/ml inj SUBQ SCH (09:00)
[2017-04-02 09:27] LABS: ALANINE AMINOTRANSFERASE 39 U/L (12-78); ALKALINE PHOSPHATASE 48 U/L (46-116); ANION GAP 6 mmol/L (5-15); ASPARTATE AMINO TRANSFERASE 22 U/L (15-37); BILIRUBIN,TOTAL 0.6 MG/DL (0.2-1.0); BLOOD UREA NITROGEN 31 mg/dL (7-18); CALCIUM 9.1 MG/DL (8.5-10.1); CARBON DIOXIDE 32 MMOL/L (21-32); CHLORIDE 105 MMOL/L (98-107); CREATININE 0.9 MG/DL (0.55-1.30); POTASSIUM 3.7 MMOL/L (3.5-5.1); SODIUM 143 MMOL/L (136-145)
[2017-04-02 09:34] LABS: ALBUMIN 3.2 G/DL (3.4-5.0)
--- NOTE | 2017-04-02 13:02 | Diagnostic Imaging Report ---
Indication: Dyspnea Comparison: 03/31/2017 A single view chest radiograph was obtained. Findings: Moderate enlargement of the heart demonstrated. Vascular congestion appears slightly improved. Lungs are clear. Aorta is moderately calcified. IMPRESSION: Cardiomegaly. Improved interstitial edema
[2017-04-02 14:00] VITALS: BP 140/82
[2017-04-02] MEDS ORDERED: Latanoprost 0.005% Opth 2.5ml Soln BOTH EYES SCH (21:00)
[2017-04-02] MEDS ORDERED: Miralax 17gm pkt ORAL SCH (21:00)
--- NOTE | 2017-04-02 21:45 | Discharge Summary ---
DATE OF ADMISSION: 03/31/2017 DATE OF DISCHARGE: 04/02/2017 ADMISSION DIAGNOSIS: Congestive heart failure exacerbation. DISCHARGE DIAGNOSIS: Congestive heart failure exacerbation. HOSPITAL COURSE: The patient is a pleasant female, who is admitted with complaints of shortness of breath due to congestive heart failure exacerbation. She was confused about her medications and not been taking her diuretic. She was admitted. She had evidence of heart failure and overload. She received intravenous Lasix and her shortness of breath improved with diuresis. On discharge, she was stable. 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 She has had a recent cath that showed no significant disease. She was discharged home. DISCHARGE MEDICATIONS: Please see discharge medication list for discharge medications. DIET: Cardiac diet. ACTIVITIES: Ad-alexander. FOLLOWUP: The patient will be followed up by Cardiology in one to two weeks. David Smith M.D. DR: JERRI JOB#: [id number] CC:
== END 2017-04-02 14:25 | disposition home or self-care (01) | DRG 292 ==
LOC: EMR 11:08 → 2W 12:25 → EDBEDREQ 13:04 → 2W 14:00 → 2E 04-01 21:51
DX: I50.43 Acute on chronic combined systolic (congestive) and diastolic (congestive) heart failure (principal); I42.9 Cardiomyopathy, unspecified; J44.9 Chronic obstructive pulmonary disease, unspecified; I44.7 Left bundle-branch block, unspecified; Z87.891 Personal history of nicotine dependence; H35.30 Unspecified macular degeneration; H40.9 Unspecified glaucoma
CPT/HCPCS: 36415; 71045; 80053; 80061; 82550; 83735; 83880; 84100; 84484; 85025; 85610; 85730; 87081; 93005; 93306; 99285; J8499

== ENCOUNTER 2017-07-04 07:33 | Inpatient (IN) | payer MEDICARE, MEDICAID ==
[~2017-07-04] VITALS: Ht 156.5 cm; Wt 52.2 kg
[2017-07-04] VITALS (7 sets, daily range): BP systolic 121–152; BP diastolic 60–89
[~2017-07-04 07:33] MED LIST changes: +ASPIRIN81 MG ORAL; +FUROSEMIDE20 M1 ORAL
--- NOTE | 2017-07-04 07:51 | Emergency Room Report ---
History of Present Illness General Chief Complaint: Dyspnea/Respdistress Source: Patient Present Illness HPI Patient presents with dyspnea. This began last night. She also has orthopnea. She denies any chest pain. This is no nausea vomiting or diarrhea. She denies any fevers or chills. She supposed be taking Lasix but states that this makes her urinate too much and therefore she does not take it. She does have swelling of her legs but no calf tenderness. She's been admitted several times for this same problem. In March she came requesting a Lasix refill and I found that she was in congestive heart failure and had a non-STEMI at that time. Admitted to the hospital but she must of left prior to the for observation. No fevers, cough, headache, anxiety. Allergies: Coded Allergies: No Known Allergies (Verified , 09/16/08) Patient History Past Medical History: see triage record Social History: Denies: smoking, alcohol use, drug use Social History Narrative Lives at home Reviewed Nursing Documentation: PMH: Agreed; PSxH: Agreed Nursing Documentation-PMH Hx Cardiac Problems: Yes - Cardiomyapathy Hx Hypertension: Yes Hx Diabetes: No Hx Cancer: No Hx Gastrointestinal Problems: Yes Hx Cerebrovascular Accident: No Hx Vertigo: Yes Hx Dizziness: Yes Hx Syncope: Yes Hx Headaches: Yes Hx Numbness: Yes Review of Systems All Other Systems: negative except mentioned in HPI Physical Exam Vital Signs Date Time Temp Pulse Resp B/P (MAP) Pulse Ox O2 Delivery O2 Flow Rate FiO2 07/04/17 07:36 97.5 103 18 139/78 91 Room Air 97.5 Sp02 EP Interpretation: reviewed, abnormal - Reviewed as low by me General Appearance: well appearing, no apparent distress, GCS 15 Head: normocephalic Eyes: bilateral eye normal inspection, bilateral eye PERRL ENT: moist mucus membranes Neck: supple Respiratory: rales - Scant at bases, expiration - Posttussive Cardiovascular #1: regular rate, rhythm, edema - Bilaterally 1+ Cardiovascular #2: 2+ radial (R) Gastrointestinal: normal inspection, normal bowel sounds, non tender, no mass, non-distended Musculoskeletal: back normal, gait/station normal, normal range of motion Neurologic: alert, oriented x3, grossly normal Psychiatric: mood/affect normal Skin: normal inspection, warm/dry Medical Decision Making Diagnostic Impression: Primary Impression: CHF (congestive heart failure) Qualified Codes: I50.43 - Acute on chronic combined systolic (congestive) and diastolic (congestive) heart failure ER Course The patient presents with dyspnea, hypoxia and orthopnea. Differential includes bronchospasm, bronchitis, pneumonia, congestive heart failure amongst others. Based on her exam heart failure is high on my list. We need to exclude myocardial damage. The patient will be evaluated with EKG, chest x-ray and labs. She'll be treated with a breathing treatment. I've suggested that she needed to be admitted to the hospital however she wants to go home. We'll need to see what labs reveal. EKG with sinus tachycardia, right bundle branch block and left atrial enlargement. Chest x-ray with a congestive heart failure worsened from last x- ray and cardiomegaly. Labs with elevated BNP but negative troponin. Normal white count. Slight improvement with the breathing treatment. I discussed the patient's need for diuresis. She does not like taking water pills. She agreed to come in to the hospital as she is hypoxemic and with congestive heart failure. There is no evidence of any myocardial damage at this time. Patient admitted to telemetry. Discussed with Dr. Reece Mejia who accepts the patient at [facility]. Due to delay, patient admitted telemetry - Dr. Colon requests Dr. Smith. Laboratory Tests Test 07/04/17 07:50 07/04/17 09:40 White Blood Count 5.4 K/UL (4.8-10.8) Red Blood Count 4.00 M/UL (4.20-5.40) L Hemoglobin 12.2 G/DL (12.0-16.0) Hematocrit 37.4 % (37.0-47.0) Mean Corpuscular Volume 94 FL (80-99) Mean Corpuscular Hemoglobin 30.6 PG (27.0-31.0) Mean Corpuscular Hemoglobin Concent 32.7 G/DL (32.0-36.0) Red Cell Distribution Width 11.6 % (11.6-14.8) Platelet Count 239 K/UL (150-450) Mean Platelet Volume 6.9 FL (6.5-10.1) Neutrophils (%) (Auto) 64.6 % (45.0-75.0) Lymphocytes (%) (Auto) 20.7 % (20.0-45.0) Monocytes (%) (Auto) 7.4 % (1.0-10.0) Eosinophils (%) (Auto) 5.5 % (0.0-3.0) H Basophils (%) (Auto) 1.8 % (0.0-2.0) Prothrombin Time 10.5 SEC (9.30-11.50) Prothrombin Time INR 1.0 (0.9-1.1) PTT 25 SEC (23-33) Sodium Level 144 MMOL/L (136-145) Potassium Level 3.8 MMOL/L (3.5-5.1) Chloride Level 106 MMOL/L (98-107) Carbon Dioxide Level 31 MMOL/L (21-32) Anion Gap 7 mmol/L (5-15) Blood Urea Nitrogen 20 mg/dL (7-18) H Creatinine 1.0 MG/DL (0.55-1.30) Estimate Glomerular Filtration Rate mL/min (>60) Glucose Level 113 MG/DL (74-106) H Calcium Level 9.1 MG/DL (8.5-10.1) Total Bilirubin 0.6 MG/DL (0.2-1.0) Aspartate Amino Transferase (AST) 73 U/L (15-37) H Alanine Aminotransferase (ALT) 88 U/L (12-78) H Alkaline Phosphatase 72 U/L (46-116) Troponin I 0.046 ng/mL (0.000-0.056) Pro-B-Type Natriuretic Peptide 4735 pg/mL (0-125) H Total Protein 6.5 G/DL (6.4-8.2) Albumin 3.3 G/DL (3.4-5.0) L Globulin 3.2 g/dL Albumin/Globulin Ratio 1.0 (1.0-2.7) Urine Color Pale yellow Urine Appearance Clear Urine pH 8 (4.5-8.0) Urine Specific Concrete 1.020 (1.005-1.035) Urine Protein Negative (NEGATIVE) Urine Glucose (UA) Negative (NEGATIVE) Urine Ketones Negative (NEGATIVE) Urine Occult Blood Negative (NEGATIVE) Urine Nitrite Negative (NEGATIVE) Urine Bilirubin Negative (NEGATIVE) Urine Urobilinogen Normal MG/DL (0.0-1.0) Urine Leukocyte Esterase Negative (NEGATIVE) EKG Diagnostic Results Rate: normal Rhythm: NSR ST Segments: no acute changes - Right bundle-branch block with left atrial enlargement Rhythm Strip Diag. Results EP Interpretation: yes Rhythm: NSR, no PVC's, no ectopy Chest X-Ray Diagnostic Results Chest X-Ray Diagnostic Results : Chest X-Ray Ordered: Yes # of Views/Limited/Complete: 1 View EP Interpretation: Yes Interpretation: no effusion, no pneumothorax, other - CHF, inc cor Impression: Other Electronically Signed by: Electronically signed by Aric Hunter MD Status: improved Disposition: ADMITTED INPATIENT Condition: Serious Aric Hunter M.D. July 04, 2017 07:51
[2017-07-04] MEDS ORDERED: MULTIVITAMINS1 EAC8 ORAL (07:55)
[2017-07-04] MEDS ORDERED: COLACE100 MG ORAL (07:55)
[2017-07-04] MEDS ORDERED: SENNOSIDES8.6 MG ORAL (07:55)
[2017-07-04] MEDS ORDERED: LATANOPROST2.5 ML (07:56)
[2017-07-04] MEDS ORDERED: Ipratropium 0.02% Inh Soln 2.5ml UD HHN ONE (08:00)
[2017-07-04] MEDS ORDERED: Albuterol ud Inhalation HHN ONE (08:00)
[2017-07-04 08:12] LABS: BASOPHILS % (AUTO) 1.8 % (0.0-2.0); EOSINOPHILS % (AUTO) 5.5 % (0.0-3.0); HEMATOCRIT 37.4 % (37.0-47.0); HEMOGLOBIN 12.2 G/DL (12.0-16.0); LYMPHOCYTES % (AUTO) 20.7 % (20.0-45.0); MEAN CORPUSCULAR VOLUME 94 FL (80-99); MONOCYTES % (AUTO) 7.4 % (1.0-10.0); NEUTROPHILS % (AUTO) 64.6 % (45.0-75.0); PLATELET COUNT 239 K/UL (150-450); RED CELL DISTRIBUTION WIDTH 11.6 % (11.6-14.8); WHITE BLOOD COUNT 5.4 K/UL (4.8-10.8)
[2017-07-04 08:44] LABS: ANION GAP 7 mmol/L (5-15); BLOOD UREA NITROGEN 20 mg/dL (7-18); CALCIUM 9.1 MG/DL (8.5-10.1); CARBON DIOXIDE 31 MMOL/L (21-32); CHLORIDE 106 MMOL/L (98-107); POTASSIUM 3.8 MMOL/L (3.5-5.1); SODIUM 144 MMOL/L (136-145)
[2017-07-04 08:56] LABS: ALANINE AMINOTRANSFERASE 88 U/L (12-78); ALBUMIN 3.3 G/DL (3.4-5.0); ALKALINE PHOSPHATASE 72 U/L (46-116); ASPARTATE AMINO TRANSFERASE 73 U/L (15-37); BILIRUBIN,TOTAL 0.6 MG/DL (0.2-1.0)
--- NOTE | 2017-07-04 09:57 | Diagnostic Imaging Report ---
Indication: Dyspnea Comparison: 04/01/2017 A single view chest radiograph was obtained. Findings: Interstitial edema with cardiomegaly demonstrated. No definite pleural effusions are appreciated. The bones are osteopenic. IMPRESSION: Mild interstitial edema
[2017-07-04 10:03] LABS: APPEARANCE,URINE CLEAR; BILIRUBIN, URINE NEGATIVE (NEGATIVE); COLOR,URINE PALE YELLOW; GLUCOSE, URINE (UA) NEGATIVE (NEGATIVE); KETONES,URINE NEGATIVE (NEGATIVE); LEUKOCYTE ESTERASE ,URINE NEGATIVE (NEGATIVE); NITRITE,URINE NEGATIVE (NEGATIVE); PH,URINE 8 (4.5-8.0); PROTEIN,URINE NEGATIVE (NEGATIVE); UROBILINOGEN,URINE NORMAL MG/DL (0.0-1.0)
--- NOTE | 2017-07-04 15:04 | Cardiology Report ---
APPROVED REPORT EXAM: Two-dimensional and M-mode echocardiogram with Doppler and color Doppler. INDICATION Congestive Heart Failure M-Mode DIMENSIONS IVSd1.2 (0.7-1.1cm)Left Atrium (MM)4.2 (1.6-4.0cm) LVDd4.6 (3.5-5.6cm)Aortic Root2.9 (2.0-3.7cm) PWd1.2 (0.7-1.1cm)Aortic Cusp Exc.1.0 (1.5-2.0cm) LVDs3.8 (2.5-4.0cm) PWs1.4 cm Mild left ventricular enlargement by 2D. Global left ventricular hypokinesis. Left ventricular ejection fraction estimated to be 35 %. Mild left ventricular hypertrophy. No evidence of pericardial or pleural effusion. Mild right ventricular enlargement. Mild left atrial enlargement. Right atrial chamber size is within normal limits. Aortic valve calcification with decreased cusp excursion c/w aortic stenosis. Mildly thickened mitral valve leaflets with normal excursion. Mild mitral annulus and aortic root calcification. Normal pulmonic valve structure. Normal tricuspid valve structure. IVC dilated at 2.6 cm without physiological collapse, estimated RAP is 15 mmHg. A color flow and spectral Doppler study was performed and revealed: Mild to moderate aortic regurgitation. Peak aortic valve gradient of 16 mmHg and a mean of 0.9 mmHg. Aortic valve area 0.9 cm2 calculated by continuity equation. Severe mitral regurgitation. Mitral inflow indicate increased left atrial pressure, suggestive restrictive pattern (Grade III). Moderate tricuspid regurgitation. Tricuspid systolic velocities suggests peak right ventricular systolic pressure of 69 mmHg, consistent with severe pulmonary hypertension. Moderate to severe pulmonic regurgitation present.
[2017-07-04] MEDS ORDERED: Heparin 5000 units/ml inj SUBQ SCH (21:00)
[2017-07-04] MEDS ORDERED: Latanoprost 0.005% Opth 2.5ml Soln BOTH EYES SCH ×2 (21:00)
[2017-07-04] MEDS ORDERED: Carvedilol 6.25mg Tab ORAL SCH (21:00)
[2017-07-05] MEDS ORDERED: Multivitamin w/Minerals tab ORAL SCH (09:00)
[2017-07-05] MEDS ORDERED: Hyzaar 12.5mg/50mg tab ORAL SCH (09:00)
[2017-07-05] MEDS ORDERED: Aspirin Baby 81mg ORAL SCH (09:00)
[2017-07-05] MEDS ORDERED: Docusate 100mg cap ORAL SCH (09:00)
--- NOTE | 2017-07-05 16:58 | Discharge Summary ---
Discharge Summary Discharge Summary _ DATE OF ADMISSION: 07/04/2017 DATE OF DISCHARGE: 07/04/2017 BRIEF HOSPITAL COURSE: Patient is a 86-year-old female, who presented to ED due to dyspnea. On evaluation at ED EKG was in sinus tachycardia with right bundle branch block. Chest x-ray with congestive heart failure. Labs showed elevated BNP troponin was negative. Patient was supposed to be transferred to [facility] but due to delay was admitted to telemetry. Upon transfer to the floor, patient left AGAINST MEDICAL ADVICE. FINAL DIAGNOSES: Acute CHF exacerbation DISPOSITION: Patient left AGAINST MEDICAL ADVICE I have been assigned to dictate discharge summary on this account, and I was not involved in the patient's management. Cassie Syed NP July 05, 2017 16:58
--- NOTE | 2017-07-05 16:59 | History & Physical ---
History and Physical History & Physicial patient left AMA before being seen Cassie Syed NP July 05, 2017 16:59
== END 2017-07-04 21:30 | disposition left against medical advice (07) | DRG 293 ==
LOC: EMR 08:10 → 2E 11:09 → EDBEDREQ 11:26
DX: I11.0 Hypertensive heart disease with heart failure (principal); I50.9 Heart failure, unspecified; R00.0 Tachycardia, unspecified; I45.10 Unspecified right bundle-branch block; I42.9 Cardiomyopathy, unspecified; I25.2 Old myocardial infarction
CPT/HCPCS: 36415; 71045; 80053; 81003; 83880; 84484; 85025; 85610; 85730; 93005; 93306; 94640; 94664; 99285